=== PATIENT | male | born 1955 | race Caucasian/White ===

== ENCOUNTER → 2017-06-13 | Outpatient (CLI) | payer OTHER | LOC: FIMAGING 10:46 | PROVIDERS: ATTEND Internal Medicine | DX: M47.896 Other spondylosis, lumbar region (principal); M48.061 Spinal stenosis, lumbar region without neurogenic claudication; M99.73 Connective tissue and disc stenosis of intervertebral foramina of lumbar region; M51.26 Other intervertebral disc displacement, lumbar region; E03.8 Other specified hypothyroidism; E23.6 Other disorders of pituitary gland; E29.1 Testicular hypofunction; E61.1 Iron deficiency; R35.1 Nocturia ==

== ENCOUNTER 2018-03-05 17:36 | Emergency (ER) | payer OTHER ==
[2018-03-05] MEDS ORDERED: ALBUTEROL 3 ML DEYVIAL IH ONE (19:16)
--- NOTE | 2018-03-05 19:18 | EDPHY ---
H & P Time Seen by Provider: 03/05/18 18:42 HPI/ROS: CHIEF COMPLAINT: Cough and shortness of breath HISTORY OF PRESENT ILLNESS: Patient started feeling sick when he was in [place] over the [place] holidays. [place] He is had a nonproductive cough and some congestion for the past 2 weeks but over the past 24 hr developed a burning in the center of his chest and felt tired and started coughing up small amounts of blood in the last 24 hr. He had a coughing fit today and felt like he could not breathe, presents to the ER for evaluation. Coughing is paroxysmal. Not associated with leg swelling. No chest pain. No fevers or chills. REVIEW OF SYSTEMS: Eye: no change in vision ENT: Mild sore throat, no nose bleeding Cardiac: no chest pain or syncope Pulmonary: HPI Abdomen: no vomiting, diarrhea, abdominal pain Musculoskeletal: no back pain Skin: no rash Neuro: no headache Constitutional: no fever : no urinary symptoms A comprehensive 10 point review of systems is otherwise negative aside from elements mentioned in the history of present illness. PAST MEDICAL HISTORY: Negative, no history of venous thromboembolism Social history: Nonsmoker, no recent travel or immobilization. General Appearance: Alert and conversant, cooperative. Eyes: No scleral icterus. ENT, Mouth: Normal mucous membranes. No pharyngeal erythema or exudate, no trismus, no stridor or drooling. Respiratory: Bilateral faint expiratory wheezing but speaks in full sentences, no rhonchi or rales. Cardiovascular: Regular rate and rhythm. Gastrointestinal: Abdomen is soft and non tender. Neurological: Alert, face symmetric, normal motor and sensory in extremities. Skin: Warm and dry, no rashes. Musculoskeletal: No calf tenderness. Psychiatric: Not agitated. Emergency Department course/MDM: Differential includes but not limited to bronchitis, URI, bronchospasm, influenza, pneumonia. I think that pulmonary embolism would be unlikely as he really had cold symptoms for 2 weeks and is small amounts of coughing up blood are likely due to local trauma from coughing. Albuterol nebulizer. Chest x- ray and labs include influenza testing. 2108: Results discussed, negative for pneumonia or influenza, will treat with steroids , beta agonist, cough medication for bronchitis. Risk benefit alternatives of steroids and MDI discussed and consented. Smoking Status: Never smoked Constitutional: Initial Vital Signs Temperature (C) 36.8 C 03/05/18 17:51 Heart Rate 78 03/05/18 17:51 Respiratory Rate 16 03/05/18 17:51 Blood Pressure 105/76 03/05/18 17:51 O2 Sat (%) 94 03/05/18 17:51 O2 Delivery Mode Room Air Allergies/Adverse Reactions: No Known Allergies Allergy (Unverified 03/05/18 17:50) Home Medications: Medication Instructions Recorded Benzonatate [Tessalon Pearles (RX)] 100 mg PO Q8 PRN #15 cap 03/05/18 Fish Oil 1,000 mg Softgel 03/05/18 Ginseng 03/05/18 Testosterone 03/05/18 predniSONE [prednisone 20mg (RX)] 40 mg PO DAILY 5 Days tab 03/05/18 Medical Decision Making - Diagnostics Imaging Results: Imaging Impressions Chest X-Ray 03/05/18 18:48 Impression: No evidence for acute cardiopulmonary abnormality. Imaging: I viewed and interpreted images myself Differential Diagnosis: Differential diagnosis considered for shortness of breath including but not limited to pulmonary infectious process, COPD, asthma, pulmonary embolus and congestive heart failure. - Data Points Laboratory Results: Laboratory Results 03/05/18 19:00 03/05/18 19:00 03/05/18 03/05/18 03/05/18 19:00 19:00 19:00 WBC 7.88 10^3/uL 10^3/uL (3.80-9.50) RBC 5.62 10^6/uL 10^6/uL (4.40-6.38) Hgb 15.2 g/dL g/dL (13.7-17.5) Hct 46.1 % % (40.0-51.0) MCV 82.0 fL fL (81.5-99.8) MCH 27.0 pg L pg (27.9-34.1) MCHC 33.0 g/dL g/dL (32.4-36.7) RDW 13.6 % % (11.5-15.2) Plt Count 234 10^3/uL 10^3/uL (150-400) MPV 10.6 fL fL (8.7-11.7) Neut % (Auto) 65.8 % % (39.3-74.2) Lymph % (Auto) 23.5 % % (15.0-45.0) [place] % (Auto) 7.9 % % (4.5-13.0) Eos % (Auto) 1.9 % % (0.6-7.6) Baso % (Auto) 0.4 % % (0.3-1.7) Nucleat RBC Rel Count 0.0 % % (0.0-0.2) Absolute Neuts (auto) 5.19 10^3/uL 10^3/uL (1.70-6.50) Absolute Lymphs (auto) 1.85 10^3/uL 10^3/uL (1.00-3.00) Absolute Monos (auto) 0.62 10^3/uL 10^3/uL (0.30-0.80) Absolute Eos (auto) 0.15 10^3/uL 10^3/uL (0.03-0.40) Absolute Basos (auto) 0.03 10^3/uL 10^3/uL (0.02-0.10) Absolute Nucleated RBC 0.00 10^3/uL 10^3/uL (0-0.01) Immature Gran % 0.5 % % (0.0-1.1) Immature Gran # 0.04 10^3/uL 10^3/uL (0.00-0.10) Sodium 136 mEq/L mEq/L (135-145) Potassium 4.0 mEq/L mEq/L (3.5-5.2) Chloride 108 mEq/L mEq/L (97-110) Carbon Dioxide 22 mEq/l mEq/l (22-31) Anion Gap 6 mEq/L mEq/L (6-14) BUN 20 mg/dL mg/dL (7-23) Creatinine 0.9 mg/dL mg/dL (0.7-1.3) Estimated GFR > 60 Glucose 86 mg/dL mg/dL (70-100) Calcium 9.3 mg/dL mg/dL (8.5-10.4) Nasal Influenza A PCR NEGATIVE FOR FLU A (NEGATIVE) Nasal Influenza B PCR NEGATIVE FOR FLU B (NEGATIVE) Medications Given: Discontinued Medications Albuterol (Proventil Neb) 3 ml IH EDNOW ONE Stop: 03/05/18 19:17 Last Admin: 03/05/18 19:38 Dose: 3 ml Albuterol Sulfate (Proventil Inh Prepack) 1 mdi TAKEHOME EDNOW ONE Stop: 03/05/18 21:10 Last Admin: 03/05/18 21:25 Dose: 1 mdi Prednisone (Prednisone) 60 mg PO EDNOW ONE Stop: 03/05/18 21:10 Last Admin: 03/05/18 21:26 Dose: 60 mg Departure - Departure Disposition: Home, Routine, Self-Care Clinical Impression: Acute bronchitis Qualifiers: Bronchitis organism: unspecified organism Qualified Code(s): J20.9 - Acute bronchitis, unspecified Condition: Good Instructions: Albuterol (By breathing), Acute Bronchitis (ED) Additional Instructions: Flu test negative. No pneumonia on chest x-ray. Albuterol inhaler 2 puffs every 6-8 hours for the next 3 days. Referrals: Stefan Owens MD [Primary Care Provider] - As per Instructions Prescriptions: Benzonatate [Tessalon Pearles (RX)] 100 mg PO Q8 PRN #15 cap PRN Reason: Cough, Moderate predniSONE [prednisone 20mg (RX)] 40 mg PO DAILY 5 Days tab
[2018-03-05 19:36] LABS: PLATELET COUNT 234 10^3/uL (150-400)
[2018-03-05 21:05] VITALS: BP 115/78
[2018-03-05] MEDS ORDERED: predniSONE 20 MG TAB PO ONE (21:09)
[2018-03-05] MEDS ORDERED: ALBUTEROL INH PREPACK MDI TAKEHOME ONE (21:09)
== END 2018-03-05 21:36 | disposition home or self-care (01) ==
DX: J20.9 Acute bronchitis, unspecified (principal)
CPT/HCPCS: J7512; J7613